=== PATIENT | male | born 1945 | race Caucasian/White ===

== ENCOUNTER 2017-01-10 03:22 | Inpatient (IN) | payer MEDICARE ==
--- NOTE | 2017-01-10 03:40 | Emergency Department Record ---
History of Present Illness - General Chief Complaint: Abdominal Pain Stated Complaint: ABDOMEN PAIN Time Seen by Provider: 01/10/17 03:36 Source: Patient Mode of Arrival: Ambulatory Limitations: No limitations - History of Present Illness Initial Comments: The patient is here due to a 12 hour hx of abdominal pain and fullness with nausea and 3 episodes of vomiting. He denies any diarrhea, fever, CP, SOB or back pain. The patient has a hx of a partial colon resection in 2002 due to colon CA and since has had 3 episodes of an SBO that he has been hospitalized for. He has never needed surgery for the SBO and has resolved them spontaneously and now feels like he has another. He denies any hx of any other abdominal surgeries and his last SBO was around 2006. MD Complaint: Abdominal pain Onset/Timin -: Hour(s) Location: Epigastric Radiation: None Migration to: No migration Severity: Moderate Quality: Fullness, Other Consistency: Intermittent Improves With: Movement Worsens With: Nothing Associated Symptoms: Nausea - Related Data Home Medications Medication Instructions Recorded Confirmed Last Taken Hydrocodone/Acetaminophen [[place] 1 each PO QHS 01/10/17 01/10/17 01/08/17 5-325 Tablet] Allergies Allergy/AdvReac Type Severity Reaction Status Date / Time No Known Drug Allergies Allergy Verified 01/10/17 03:26 Travel Screening - Travel/Exposure Within Last 30 Days Have you traveled within the last 30 days?: No - Travel/Exposure Within Last Year Have you traveled outside the [place] in the last year?: No - Additonal Travel Details Have you been exposed to anyone with a communicable illness?: No - Travel Symptoms Symptom Screening: None Review of Systems Constitutional: Denies: Chills, Fever Eyes: Denies: Eye discharge ENT: Denies: Congestion Respiratory: Denies: Cough Past Medical History - SOCIAL HISTORY Smoking Status: Never smoker Alcohol Use: Occassional Drug Use: None - RESPIRATORY Hx Respiratory Disorders: No - CARDIOVASCULAR Hx Cardio Disorders: No - NEURO Hx Neuro Disorders: No - GI Hx GI Disorders: Yes Hx Abdominal Pain: Yes Comment:: adhesions and scar tissue - Hx Genitourinary Disorders: No - ENDOCRINE Hx Endocrine Disorders: No - MUSCULOSKELETAL Hx Musculoskeletal Disorders: Yes Hx Arthritis: Yes - PSYCH Hx Psych Problems: No - HEMATOLOGY/ONCOLOGY Hx Hematology/Oncology Disorders: Yes Hx Cancer: Yes (colon) Family Medical History Any Significant Family History?: No Physical Exam - General General Appearance: Alert, Oriented x3, Cooperative, No acute distress - Head Head exam: Atraumatic - Eye Eye exam: Normal appearance, PERRL - ENT Throat exam: Normal inspection. negative: Tonsillar erythema, Tonsillar exudate - Neck Neck exam: Normal inspection, Full ROM. negative: Tenderness - Respiratory Respiratory exam: Normal lung sounds bilaterally. negative: Respiratory distress - Cardiovascular Cardiovascular Exam: Regular rate, Normal rhythm, Normal heart sounds - GI/Abdominal GI/Abdominal exam: Soft, Diminished bowel sounds, Tenderness (There is diffuse upper abdominal tenderness.). negative: Guarding, Pulsatile mass, Rebound, Rigid - Extremities Extremities exam: Normal inspection, Full ROM, Normal capillary refill. negative: Tenderness - Neurological Neurological exam: Normal gait. negative: Abnormal gait, Motor sensory deficit - Psychiatric Psychiatric exam: negative: Anxious Course Vital Signs 01/10/17 01/10/17 03:25 03:31 Temperature 97.6 F Pulse Rate [ 78 Pulse Ox Probe] Respiratory 24 Rate Blood Pressure 136/86 [Left Arm] Pulse Ox 96 - Reevaluation(s) Reevaluation #1: The patient is doing better. He is resting comfortably with no pain or nausea. 01/10/17 04:41 Reevaluation #2: The patient is doing very well at this time. He denies any pain or discomfort. I did explain to him that it appears he has a mild SBO. Due to that fact we will admit him to the hospital and consult General Surgery tomorrow for further evaluation. 01/10/17 04:53 Medical Decision Making - Data Complexity MDM Data: Labs Ordered and/or Reviewed, X-Ray Ordered and/or Reviewed - Lab Data Result diagrams: 01/10/17 04:05 01/10/17 04:05 - Radiology Data Radiology results: Report reviewed (Abd CT: Mild to mod SBO.) Disposition Disposition: Admit Clinical Impression: Small bowel obstruction due to adhesions Disposition: Still a Patient at [facility] Decision to Admit: Admit from ER Decision to Admit Date: 01/10/17 Decision to Admit Time: 04:54 Accepting Physician: Radha Time Discussed w/Accepting Physician: 04:54 Condition: (2) Stable Forms: Patient Portal Access Time of Disposition: 04:55
[2017-01-10] MEDS ORDERED: 0.9 % SODIUM CHLORIDE 1,000 ML BAG IV ONE (03:46)
[2017-01-10] MEDS ORDERED: ONDANSETRON HCL IV 4 MG/2 ML VIAL IV ONE (03:46)
[2017-01-10] MEDS ORDERED: HYDROMORPHONE HCL 1 MG/ML CPJ IVP ONE (03:46)
[2017-01-10 04:19] LABS: HEMATOCRIT 47.7 % (42.0-52.0); HEMOGLOBIN 16.2 gm/dl (14.0-18.0); MEAN CELL VOLUME 86.9 fl (81-97); MEAN CORPUSCULAR HEMOGLOBIN 29.5 pg (27-33); MEAN PLATELET VOLUME 9.1 fl (7.4-10.4); PLATELET COUNT 349 K/uL (130-400); RED BLOOD COUNT 5.49 M/uL (4.40-5.70); RED CELL DISTRIBUTION WIDTH 13.9 % (11.5-14.5); WHITE BLOOD COUNT W/O DIFF 14.4 K/uL (4.2-12.2)
[2017-01-10 04:31] LABS: ALBUMIN 4.1 gm/dL (3.5-5.0); ALKALINE PHOSPHATASE 99 U/L (38-126); ALT/SGPT 32 U/L (21-72); ANION GAP 11.5 (7-16); AST/SGOT 25 U/L (17-59); BILIRUBIN,TOTAL 0.61 mg/dL (0.2-1.3); BLOOD UREA NITROGEN 16 mg/dL (9-20); CARBON DIOXIDE 20.5 mmol/L (22-30); CREATININE 0.7 mg/dL (0.66-1.25); EST GLOMERULAR FILTRATION RATE > 60 ml/min; GLUCOSE,RANDOM 169 mg/dL (70-110); LIPASE 24 U/L (23-300); TOTAL PROTEIN 7.5 gm/dL (6.3-8.2)
[2017-01-10] MEDS ORDERED: POTASSIUM CHLORIDE/D5-0.9%NACL 20 MEQ/1,000 ML BAG IV ONE (05:24)
[2017-01-10] MEDS ORDERED: HYDROMORPHONE HCL 1 MG/ML CPJ IVP PRN (05:24)
[2017-01-10] MEDS ORDERED: ONDANSETRON HCL IV 4 MG/2 ML VIAL IVP PRN (05:24)
[2017-01-10 06:20] LABS: HEMATOCRIT 44.9 % (42.0-52.0); MEAN CELL VOLUME 87.7 fl (81-97); MEAN CORPUSCULAR HEMOGLOBIN 29.3 pg (27-33); MEAN CORPUSCULAR HGB CONC 33.4 g/dl (32-36); MEAN PLATELET VOLUME 9.3 fl (7.4-10.4); PLATELET COUNT 327 K/uL (130-400); RED BLOOD COUNT 5.12 M/uL (4.40-5.70); RED CELL DISTRIBUTION WIDTH 14.1 % (11.5-14.5); WHITE BLOOD COUNT W/O DIFF 13.7 K/uL (4.2-12.2)
[2017-01-10 06:31] LABS: ANION GAP 12.7 (7-16); BLOOD UREA NITROGEN 18 mg/dL (9-20); CARBON DIOXIDE 22.3 mmol/L (22-30); CREATININE 0.7 mg/dL (0.66-1.25); EST GLOMERULAR FILTRATION RATE > 60 ml/min; GLUCOSE,RANDOM 184 mg/dL (70-110)
[2017-01-10 07:06] LABS: PLATELET ESTIMATE NORMAL (NORMAL)
[2017-01-10] MEDS ORDERED: PNEUM 13-VAL/PF 0.5 ML IM ONE (07:58)
[2017-01-10] MEDS: ENOXAPARIN 40 MG/0.4 ML SYR SQ SCH (09:29)
[2017-01-10] MEDS: PANTOPRAZOLE SODIUM IV 40 MG VIAL IV SCH (09:29)
[2017-01-10 12:57] LABS: URINE APPEARANCE CLEAR; URINE BILIRUBIN NEGATIVE (NEGATIVE); URINE BLOOD NEGATIVE (NEGATIVE); URINE COLOR YELLOW; URINE GLUCOSE (UA) NEGATIVE (NEGATIVE); URINE KETONE NEGATIVE (NEGATIVE); URINE LEUKOCYTE ESTERASE NEGATIVE (NEGATIVE); URINE NITRITE NEGATIVE (NEGATIVE); URINE PROTEIN NEGATIVE (NEGATIVE); URINE UROBILINOGEN 0.2 E.U./dL (0.20 - 1.00)
[2017-01-10] MEDS: 0.9 % SODIUM CHLORIDE 1000ML 1,000 ML IV PRN ×2 (15:26→21:42)
--- NOTE | 2017-01-10 19:28 | History & Physical ---
History of Present Illness - Date of Service Date of Service for History & Physical: 01/10/17 - History of Present Illness Admitting Diagnosis: 1. Small Bowel Obstruction due to Adhesions. History of Present Illness: 71 y/o male with CC of 12 hour history of abdominal pain and fullness, nausea and vomiting x 3 admitted for SBO. Past medical history includes SBO x3 2nd adhesions (last one 2006), chronic back pain, colon ca s/p partial colon resection 2002. Past Surgical History partial colon resection 2002 hip replacement Prior to arrival reports 12 hour history of abdominal pain, fullness, nausea and vomiting. Denies diarrhea, fever, chest pain, shortness of breath. Reports had partial bowel obstructions 3 times previously that resolved without surgery. Has seen Dr Rizo in the past for SBO. Does not take daily laxative or stool softener. Last BM 2 days ago While in the ED WBC 14.4, was afebrile, VSS. CT abdomen shows mild SBO. Admitted for SBO, surgical consult, IVF, pain management. Laboratory Results WBC 13.7 K/uL (4.2-12.2) H 01/10/17 05:50 RBC 5.12 M/uL (4.40-5.70) 01/10/17 05:50 Hgb 15.0 gm/dl (14.0-18.0) 01/10/17 05:50 Hct 44.9 % (42.0-52.0) 01/10/17 05:50 MCV 87.7 fl (81-97) 01/10/17 05:50 MCH 29.3 pg (27-33) 01/10/17 05:50 MCHC 33.4 g/dl (32-36) 01/10/17 05:50 RDW 14.1 % (11.5-14.5) 01/10/17 05:50 Plt Count 327 K/uL (130-400) 01/10/17 05:50 MPV 9.3 fl (7.4-10.4) 01/10/17 05:50 Neutrophils % 86.0 % (47-80) H 01/10/17 05:50 Band Neutrophils % 4.0 % (0-5) 01/10/17 04:05 Eosinophils % Not Reportable 01/10/17 05:50 Basophils % Not Reportable 01/10/17 05:50 Lymphocytes 11.0 % (16-45) L 01/10/17 05:50 Monocytes 3.0 % (0-9) 01/10/17 05:50 Basophils 0.0 % (0-6) 01/10/17 04:05 Platelet Estimate Normal (NORMAL) 01/10/17 05:50 RBC Morphology Normal 01/10/17 05:50 Eosinophil Count 0.0 % (0-6) 01/10/17 04:05 Sodium 144 mmol/L (136-145) 01/10/17 05:50 Potassium 4.1 mmol/L (3.5-5.1) 01/10/17 05:50 Chloride 109 mmol/L (98-107) H 01/10/17 05:50 Carbon Dioxide 22.3 mmol/L (22-30) 01/10/17 05:50 Anion Gap 12.7 (7-16) 01/10/17 05:50 BUN 18 mg/dL (9-20) 01/10/17 05:50 Creatinine 0.7 mg/dL (0.66-1.25) 01/10/17 05:50 Estimated GFR > 60 ml/min 01/10/17 05:50 Random Glucose 184 mg/dL (70-110) H 01/10/17 05:50 Calcium 9.2 mg/dL (8.5-10.1) 01/10/17 05:50 Total Bilirubin 0.61 mg/dL (0.2-1.3) 01/10/17 04:05 Direct Bilirubin 0.0 mg/dL (0-0.3) 01/10/17 04:05 AST 25 U/L (17-59) 01/10/17 04:05 ALT 32 U/L (21-72) 01/10/17 04:05 Alkaline Phosphatase 99 U/L (38-126) 01/10/17 04:05 Total Protein 7.5 gm/dL (6.3-8.2) 01/10/17 04:05 Albumin 4.1 gm/dL (3.5-5.0) 01/10/17 04:05 Lipase 24 U/L (23-300) 01/10/17 04:05 Urine Color Yellow 01/10/17 Unknown Urine Appearance Clear 01/10/17 Unknown Urine pH 6.0 (5.0-8.0) 01/10/17 Unknown Ur Specific [place] 1.025 (1.002-1.030) 01/10/17 Unknown Urine Protein Negative (NEGATIVE) 01/10/17 Unknown Urine Glucose (UA) Negative (NEGATIVE) 01/10/17 Unknown Urine Ketones Negative (NEGATIVE) 01/10/17 Unknown Urine Blood Negative (NEGATIVE) 01/10/17 Unknown Urine Nitrite Negative (NEGATIVE) 01/10/17 Unknown Urine Bilirubin Negative (NEGATIVE) 01/10/17 Unknown Urine Urobilinogen 0.2 E.U./dL (0.20 - 1.00) 01/10/17 Unknown Ur Leukocyte Esterase Negative (NEGATIVE) 01/10/17 Unknown Vital Signs - Last 24 Hrs Temp Pulse Resp BP Pulse Ox 01/10/17 19:00 97.6 F 71 14 128/73 95 01/10/17 11:24 70 12 118/64 98 01/10/17 09:00 12 01/10/17 07:29 98.2 F 80 16 118/67 96 01/10/17 05:24 97.7 F 69 20 144/88 94 L 01/10/17 05:06 97.7 F 69 16 134/93 95 01/10/17 03:31 78 24 136/86 96 01/10/17 03:25 97.6 F 01/10/17- resting in bed comfortably, denies pain or nausea. Has not passed gas or stool since admit. PCP: Dr Marie Magazine Grinder Loader: Dr Ray General Surgeon- Dr Rizo Travel Screening - Travel/Exposure Within Last 30 Days Have you traveled within the last 30 days?: No - Travel/Exposure Within Last Year Have you traveled outside the [place] in the last year?: No - Additonal Travel Details Have you been exposed to anyone with a communicable illness?: No - Travel Symptoms Symptom Screening: Vomiting, Stomach Pain Review of Systems Constitutional: Denies: Chills, Fever Eyes: Denies: Eye discharge ENT: Denies: Congestion Respiratory: Denies: Cough Past Medical History - SOCIAL HISTORY Smoking Status: Never smoker - RESPIRATORY Hx Respiratory Disorders: No - CARDIOVASCULAR Hx Cardio Disorders: No - NEURO Hx Neuro Disorders: No - GI Hx GI Disorders: Yes Hx Abdominal Pain: Yes Hx Obstructive Bowel: Yes (SBO X3; LAST 2006) Comment:: adhesions and scar tissue - Hx Genitourinary Disorders: No - ENDOCRINE Hx Endocrine Disorders: No - MUSCULOSKELETAL Hx Musculoskeletal Disorders: Yes Hx Arthritis: Yes Comment:: CHRONIC BACK PAIN - PSYCH Hx Psych Problems: No - HEMATOLOGY/ONCOLOGY Hx Hematology/Oncology Disorders: Yes Hx Cancer: Yes (colon) Family Medical History Any Significant Family History?: No H&P Meds/Allergies - Allergies Allergies: Allergies Allergy/AdvReac Type Severity Reaction Status Date / Time No Known Drug Allergies Allergy Verified 01/10/17 03:26 - Home Medications Home Medications Medication Instructions Recorded Confirmed Last Taken Hydrocodone/Acetaminophen [[place] 1 each PO QHS 01/10/17 01/10/17 01/08/17 5-325 Tablet] - Active Medications Active Medications: Current Medications Acetaminophen (Tylenol 500mg Tab) 1,000 mg PO Q6H PRN PRN Reason: Pain - General Enoxaparin Sodium (Lovenox) 40 mg SQ DAILY [facility] Last Admin: 01/10/17 09:29 Dose: 40 mg Hydromorphone HCl (Dilaudid) 0.5 mg IVP Q4H PRN PRN Reason: Analgesia Sodium Chloride () 1,000 mls @ 125 mls/hr IV .Q8H PRN PRN Reason: LARGE VOLUME IV Last Admin: 01/10/17 15:26 Dose: 125 mls/hr Ondansetron HCl (Zofran) 4 mg IVP Q4H PRN PRN Reason: NAUSEA Pantoprazole Sodium (Protonix Iv) 40 mg IV DAILY [facility] Last Admin: 01/10/17 09:29 Dose: 40 mg Physical Exam - Vital Signs Vital Signs: Vital Signs - Last 24 Hrs Temp Pulse Resp BP Pulse Ox 01/10/17 19:00 97.6 F 71 14 128/73 95 01/10/17 11:24 70 12 118/64 98 01/10/17 09:00 12 01/10/17 07:29 98.2 F 80 16 118/67 96 01/10/17 05:24 97.7 F 69 20 144/88 94 L - General General Appearance: Alert, Oriented x3, Cooperative, No acute distress Limitations: No limitations - Head Head exam: Atraumatic - Eye Eye exam: Normal appearance, PERRL - ENT Throat exam: Normal inspection. negative: Tonsillar erythema, Tonsillar exudate - Neck Neck exam: Normal inspection, Full ROM. negative: Tenderness - Respiratory Respiratory exam: Normal lung sounds bilaterally. negative: Respiratory distress - Cardiovascular Cardiovascular Exam: Regular rate, Normal rhythm, Normal heart sounds Peripheral Pulses: 2+: Dorsalis Pedis (R), Dorsalis Pedis (L) - GI/Abdominal GI/Abdominal exam: Soft, Normal bowel sounds, Tenderness (There is diffuse upper abdominal tenderness.). negative: Guarding, Pulsatile mass, Rebound, Rigid - Rectal Rectal exam: Deferred - Extremities Extremities exam: Normal inspection, Full ROM, Normal capillary refill. negative: Tenderness - Neurological Neurological exam: Normal gait. negative: Abnormal gait, Motor sensory deficit - Psychiatric Psychiatric exam: negative: Anxious Results - Labs Result Diagrams: 01/10/17 05:50 01/10/17 05:50 Labs Last 24 Hours: Laboratory Results - last 24 hr 01/10/17 01/10/17 01/10/17 05:50 05:50 Unknown WBC 13.7 H RBC 5.12 Hgb 15.0 Hct 44.9 MCV 87.7 MCH 29.3 MCHC 33.4 RDW 14.1 Plt Count 327 MPV 9.3 Neutrophils % 86.0 H Eosinophils % Not Reportable Basophils % Not Reportable Lymphocytes 11.0 L Monocytes 3.0 Platelet Estimate Normal RBC Morphology Normal Sodium 144 Potassium 4.1 Chloride 109 H Carbon Dioxide 22.3 Anion Gap 12.7 BUN 18 Creatinine 0.7 Estimated GFR > 60 Random Glucose 184 H Calcium 9.2 Urine Color Yellow Urine Appearance Clear Urine pH 6.0 Ur Specific [place] 1.025 Urine Protein Negative Urine Glucose (UA) Negative Urine Ketones Negative Urine Blood Negative Urine Nitrite Negative Urine Bilirubin Negative Urine Urobilinogen 0.2 Ur Leukocyte Esterase Negative - Imaging and Cardiology CT scan - abdomen Status: Report reviewed (partial SBO) VTE H&P Assessment - Risk for VTE Risk for VTE: Yes Risk Level: Moderate Risk Assessment Date: 01/10/17 Risk Assessment Time: 09:00 VTE Orders Placed or Will Be Placed: Yes Plan - Inpatient Certification Inpatient Certification: Admit to inpatient care: Based on my medical assessment, after consideration of patient's risk factors (age, co-morbidities and patient presenting symptoms and acuity), I expect that this patient will remain in the hospital greater than or equal to two midnights and that the services needed warrant inpatient care because: Patient Risk Factors: [] Estimated length of stay: [] The patient may reasonably be expected to be discharged or transferred to a hospital within 96 hours after admission to [facility]. Services needed: [] Post hospital care (if known): [] I certify that my determination is in accordance with my understanding of Medicare requirements for reasonable and necessary inpatient services. - Detailed Diagnosis and Plan (1) Small bowel obstruction due to adhesions Current Visit: Yes Status: Acute Base Code: K56.5 - INTESTINAL ADHESIONS W OBST (POSTPROCEDURAL) (POSTINFECTION) Comment: 01/10/17- 71 y/o male with previous hx SBO admitted for SBO. WBC in ED 14.4 and down to 13 this am, afebrile. Nausea and pain resolved since admit. Has not passed gas or stool since admit. - Potassium lower end of normal in ED, repleated in ED - IV hydration - pain and nausea control - NPO - consult Dr Rizo (2) DVT prophylaxis Current Visit: Yes Status: Acute Base Code: [id number] - Comment: 01/10/17- lovenox 40mg QD (3) Full code status Current Visit: Yes Status: Acute Base Code: Z78.9 - OTHER SPECIFIED HEALTH STATUS Comment: 01/10/17- will remain full code during this hospitalization
[2017-01-10] MEDS: ACETAMINOPHEN 500 MG TABLET PO PRN (22:29)
[2017-01-11] MEDS: ACETAMINOPHEN 500 MG TABLET PO PRN (04:37)
[2017-01-11] MEDS: 0.9 % SODIUM CHLORIDE 1000ML 1,000 ML IV PRN ×2 (05:55→14:37)
[2017-01-11 06:27] LABS: BASO % 0.4 % (0-6); EOS % 2.6 % (0-6); GRAN % 49.1 % (47-80); HEMATOCRIT 38.5 % (42.0-52.0); HEMOGLOBIN 12.7 gm/dl (14.0-18.0); MEAN CELL VOLUME 88.9 fl (81-97); MEAN CORPUSCULAR HEMOGLOBIN 29.3 pg (27-33); MONO % 6.9 % (0-9); PLATELET COUNT 284 K/uL (130-400); RED BLOOD COUNT 4.33 M/uL (4.40-5.70); RED CELL DISTRIBUTION WIDTH 13.6 % (11.5-14.5); WHITE BLOOD COUNT W/O DIFF 7.8 K/uL (4.2-12.2)
[2017-01-11 06:37] LABS: ALB/GLOB RATIO 1.1 (1.1-1.8); ALBUMIN 3.2 gm/dL (3.5-5.0); ALKALINE PHOSPHATASE 64 U/L (38-126); ALT/SGPT 30 U/L (21-72); ANION GAP 4.8 (7-16); AST/SGOT 20 U/L (17-59); BILIRUBIN,TOTAL 0.71 mg/dL (0.2-1.3); BLOOD UREA NITROGEN 12 mg/dL (9-20); CARBON DIOXIDE 23.2 mmol/L (22-30); CREATININE 0.7 mg/dL (0.66-1.25); EST GLOMERULAR FILTRATION RATE > 60 ml/min; GLUCOSE,RANDOM 110 mg/dL (70-110); TOTAL PROTEIN 6.2 gm/dL (6.3-8.2)
--- NOTE | 2017-01-11 10:09 | Physician Progress Note ---
Subjective - Date Date of Physician Progress Note: 01/11/17 - Subjective Subjective Comment: Reports is doing much better this am. Has not had any nausea, vomiting, or pain. Had 2 large BM last night and has been passing gas. Feels much better after moving bowels. Now complaining of headache and feeling hungry Objective - Vital Signs Vital Signs: Vital Signs - Last 24 Hrs Temp Pulse Resp BP Pulse Ox 01/11/17 08:00 97.7 F 58 L 18 130/68 96 01/11/17 04:00 96.8 F L 64 16 118/80 95 01/11/17 00:30 97.8 F 68 16 128/83 94 L 01/10/17 19:00 97.6 F 71 14 128/73 95 01/10/17 11:24 70 12 118/64 98 - General General Appearance: Alert, Oriented x3, Cooperative, No acute distress Limitations: No limitations - Head Head exam: Atraumatic - Eye Eye exam: Normal appearance, PERRL - ENT Throat exam: Normal inspection. negative: Tonsillar erythema, Tonsillar exudate - Neck Neck exam: Normal inspection, Full ROM. negative: Tenderness - Respiratory Respiratory exam: Normal lung sounds bilaterally. negative: Respiratory distress - Cardiovascular Cardiovascular Exam: Regular rate, Normal rhythm, Normal heart sounds Peripheral Pulses: 2+: Dorsalis Pedis (R), Dorsalis Pedis (L) - GI/Abdominal GI/Abdominal exam: Soft, Normal bowel sounds. negative: Distended, Guarding, Pulsatile mass, Rebound, Rigid, Tenderness (There is diffuse upper abdominal tenderness.) - Rectal Rectal exam: Deferred - Extremities Extremities exam: Normal inspection, Full ROM, Normal capillary refill. negative: Tenderness - Neurological Neurological exam: Normal gait. negative: Abnormal gait, Motor sensory deficit - Psychiatric Psychiatric exam: negative: Anxious Assessment and Plan - Inpatient Certification Inpatient Certification: Admit to inpatient care: Based on my medical assessment, after consideration of patient's risk factors (age, co-morbidities and patient presenting symptoms and acuity), I expect that this patient will remain in the hospital greater than or equal to two midnights and that the services needed warrant inpatient care because: Patient Risk Factors: [SBO, advanced age] Estimated length of stay: [48-72 hours] The patient may reasonably be expected to be discharged or transferred to a hospital within 96 hours after admission to [facility]. Services needed: [IV hydration, pain/nausea control, surgical consult] Post hospital care (if known): [] I certify that my determination is in accordance with my understanding of Medicare requirements for reasonable and necessary inpatient services. 01/11/17 10:08 - Assessment and Plan (1) Small bowel obstruction due to adhesions Current Visit: Yes Status: Acute Base Code: K56.5 - INTESTINAL ADHESIONS W OBST (POSTPROCEDURAL) (POSTINFECTION) Comment: 01/11/17- 71 y/o male with previous hx SBO admitted for SBO. WBC in ED 14.4 and down to 13 this am, afebrile. Nausea and pain resolved since admit. 2 large BM last night with passing of a large amount of gas. Feels much better this am. No n/v. - will offer clear liquid tray and observe for any new onset n/v, abdominal pain. Advance as tolerates - IV hydration - consult Dr Rizo (2) DVT prophylaxis Current Visit: Yes Status: Acute Base Code: [id number] - Comment: 01/11/17- lovenox 40mg QD (3) Full code status Current Visit: Yes Status: Acute Base Code: Z78.9 - OTHER SPECIFIED HEALTH STATUS Comment: 01/11/17- will remain full code during this hospitalization Results - Labs Result Diagrams: 01/11/17 06:00 01/11/17 06:00 Labs Last 24 Hours: Laboratory Results - last 24 hr 01/10/17 01/11/17 01/11/17 Unknown 06:00 06:00 WBC 7.8 RBC 4.33 L Hgb 12.7 L Hct 38.5 L MCV 88.9 MCH 29.3 MCHC 33.0 RDW 13.6 Plt Count 284 MPV 9.0 Gran % 49.1 Lymphocytes % 41.0 Monocytes % 6.9 Eosinophils % 2.6 Basophils % 0.4 Sodium 141 Potassium 3.6 Chloride 113 H Carbon Dioxide 23.2 Anion Gap 4.8 L BUN 12 Creatinine 0.7 Estimated GFR > 60 Random Glucose 110 Calcium 8.2 L Total Bilirubin 0.71 AST 20 ALT 30 Alkaline Phosphatase 64 Total Protein 6.2 L Albumin 3.2 L Globulin 3.0 Albumin/Globulin Ratio 1.1 Urine Color Yellow Urine Appearance Clear Urine pH 6.0 Ur Specific [place] 1.025 Urine Protein Negative Urine Glucose (UA) Negative Urine Ketones Negative Urine Blood Negative Urine Nitrite Negative Urine Bilirubin Negative Urine Urobilinogen 0.2 Ur Leukocyte Esterase Negative DVT/PE Assessment - Risk for VTE Risk for VTE: No Risk Level: Moderate Risk Assessment Date: 01/10/17 Risk Assessment Time: 09:00 VTE Orders Placed or Will Be Placed: Yes - Active Medicaitons Current Medications: Current Medications Acetaminophen (Tylenol 500mg Tab) 1,000 mg PO Q6H PRN PRN Reason: Pain - General Last Admin: 01/11/17 04:37 Dose: 1,000 mg Enoxaparin Sodium (Lovenox) 40 mg SQ DAILY [facility] Last Admin: 01/10/17 09:29 Dose: 40 mg Hydromorphone HCl (Dilaudid) 0.5 mg IVP Q4H PRN PRN Reason: Analgesia Sodium Chloride () 1,000 mls @ 125 mls/hr IV .Q8H PRN PRN Reason: LARGE VOLUME IV Last Admin: 01/11/17 05:55 Dose: 125 mls/hr Ondansetron HCl (Zofran) 4 mg IVP Q4H PRN PRN Reason: NAUSEA Pantoprazole Sodium (Protonix Iv) 40 mg IV DAILY [facility] Last Admin: 01/10/17 09:29 Dose: 40 mg AMI Plan - Labs Result Diagrams: 01/11/17 06:00 01/11/17 06:00
[2017-01-11] MEDS: PANTOPRAZOLE SODIUM IV 40 MG VIAL IV SCH (11:36)
[2017-01-11] MEDS: ENOXAPARIN 40 MG/0.4 ML SYR SQ SCH (11:36)
--- NOTE | 2017-01-11 16:59 | Discharge Summary ---
Providers Date of admission: 01/10/17 05:06 Attending physician: JAQUELINE SALAS Primary care physician: DHIRAJ JACKSON D.O. Consults: Consult Orders 01/10/17 08:14 Consult NOW Consulting Provider: Brendan Rizo Physician Instructions: Reason For Exam: SBO Physical Exam - Vital Signs Vital Signs: Vital Signs - Last 24 Hrs Temp Pulse Resp BP Pulse Ox 01/11/17 16:00 97.6 F 68 16 130/71 96 01/11/17 11:41 97.7 F 66 18 133/70 98 01/11/17 09:00 18 01/11/17 08:00 97.7 F 58 L 18 130/68 96 01/11/17 04:00 96.8 F L 64 16 118/80 95 01/11/17 00:30 97.8 F 68 16 128/83 94 L 01/10/17 19:00 97.6 F 71 14 128/73 95 - General General Appearance: Alert, Oriented x3, Cooperative, No acute distress Limitations: No limitations - Head Head exam: Atraumatic - Eye Eye exam: Normal appearance, PERRL - ENT Throat exam: Normal inspection. negative: Tonsillar erythema, Tonsillar exudate - Neck Neck exam: Normal inspection, Full ROM. negative: Tenderness - Respiratory Respiratory exam: Normal lung sounds bilaterally. negative: Respiratory distress - Cardiovascular Cardiovascular Exam: Regular rate, Normal rhythm, Normal heart sounds Peripheral Pulses: 2+: Dorsalis Pedis (R), Dorsalis Pedis (L) - GI/Abdominal GI/Abdominal exam: Soft, Normal bowel sounds. negative: Distended, Guarding, Pulsatile mass, Rebound, Rigid, Tenderness (There is diffuse upper abdominal tenderness.) - Rectal Rectal exam: Deferred - Extremities Extremities exam: Normal inspection, Full ROM, Normal capillary refill. negative: Tenderness - Neurological Neurological exam: Normal gait. negative: Abnormal gait, Motor sensory deficit - Psychiatric Psychiatric exam: negative: Anxious Hospitalization - Hospitalization Admission Diagnosis: 1. Small Bowel Obstruction due to Adhesions. - Problem List/Discharge Diagnosis (1) Small bowel obstruction due to adhesions Current Visit: Yes Status: Acute Base Code: K56.5 - INTESTINAL ADHESIONS W OBST (POSTPROCEDURAL) (POSTINFECTION) Comment: 01/11/17- 71 y/o male with previous hx SBO admitted for SBO. WBC in ED 14.4 and down to 13 this am, afebrile. Nausea and pain resolved since admit. 2 large BM last night with passing of a large amount of gas. Feels much better this am. No n/v. - will offer clear liquid tray and observe for any new onset n/v, abdominal pain. Advance as tolerates - IV hydration - consult Dr Rizo (2) DVT prophylaxis Current Visit: Yes Status: Acute Base Code: [id number] - Comment: 01/11/17- lovenox 40mg QD (3) Full code status Current Visit: Yes Status: Acute Base Code: Z78.9 - OTHER SPECIFIED HEALTH STATUS Comment: 01/11/17- will remain full code during this hospitalization - Hospitalization Course Abnormal Labs: Abnormal Lab Results 01/10/17 01/10/17 01/11/17 Range/Units 05:50 05:50 06:00 WBC 13.7 H (4.2-12.2) K/uL RBC 4.33 L (4.40-5.70) M/uL Hgb 12.7 L (14.0-18.0) gm/dl Hct 38.5 L (42.0-52.0) % Neutrophils % 86.0 H (47-80) % Lymphocytes 11.0 L (16-45) % Chloride 109 H (98-107) mmol/L Anion Gap (7-16) Random Glucose 184 H (70-110) mg/dL Calcium (8.5-10.1) mg/dL Total Protein (6.3-8.2) gm/dL Albumin (3.5-5.0) gm/dL 01/11/17 Range/Units 06:00 WBC (4.2-12.2) K/uL RBC (4.40-5.70) M/uL Hgb (14.0-18.0) gm/dl Hct (42.0-52.0) % Neutrophils % (47-80) % Lymphocytes (16-45) % Chloride 113 H (98-107) mmol/L Anion Gap 4.8 L (7-16) Random Glucose (70-110) mg/dL Calcium 8.2 L (8.5-10.1) mg/dL Total Protein 6.2 L (6.3-8.2) gm/dL Albumin 3.2 L (3.5-5.0) gm/dL Condition at Discharge: (2) Stable Discharge Medications - Discharge Medications Prescriptions: Sennosides [Senna] 8.6 mg PO DAILY #30 tablet Home Medications: Ambulatory Orders Hydrocodone/Acetaminophen [[place] 5-325 Tablet] 1 each PO QHS 01/10/17 [Last Taken 01/08/17] Sennosides [Senna] 8.6 mg PO DAILY #30 tablet 01/11/17 [Last Taken Unknown] Discharge Plan - Discharge Instructions
--- NOTE | 2017-01-12 10:01 | Medical Records Consult ---
DATE OF CONSULTATION: 01/11/2017 REASON FOR CONSULTATION: Small bowel obstruction. INDICATIONS: The patient is a 71-year-old male who was admitted yesterday to the hospital with about a 10- to 12-hour history of abdominal pain. He described this as diffuse in his abdomen without radiation. He had associated nausea and vomiting. He has had 3 similar episodes, the latest of which was in 2006, all handled conservatively. Imaging studies did reveal a mildly dilated colon with some gas distally consistent with a partial small bowel obstruction. He did undergo an open sigmoid resection back in 2002 for colon cancer. Two of the episodes were handled conservatively in [place] and one was up in [place]. Since being admitted to the hospital, he has had 2-3 large bowel movements, has no nausea, no vomiting, and is on a clear liquid diet. PAST MEDICAL HISTORY: Significant for colon cancer. PAST SURGICAL HISTORY: Open sigmoid resection. He currently takes [place] at home, and he has no known medical allergies. SOCIAL HISTORY: He denies any tobacco or alcohol usage. PHYSICAL EXAMINATION: VITAL SIGNS: Stable. He is afebrile. HEART: Regular rate and rhythm. LUNGS: Clear. ABDOMEN: Soft. Mildly obese. Mildly distended. Bowel sounds are noted. He does have a well-healed infraumbilical laparotomy scar noted as well. DIAGNOSTIC DATA: I did review his laboratory values and CT scan. Laboratory values from 01/11/2017 reveal a white count of 7.8, hemoglobin 12.7. His chemistries were all essentially normal. There were no follow up films ordered. IMPRESSION: Partial small bowel obstruction. This appears to be clinically resolving. He is tolerating a diet, moving his bowels without difficulty, and is clinically stable. I would advance his diet as tolerated, and he can follow up with his primary care as needed. At this point it does not seem like he needs any surgical intervention. Thank you for this consultation. CC: Dr. Radha JOYNER
== END 2017-01-11 19:07 | disposition home or self-care (01) | DRG 390 ==
LOC: ER 03:22 → MEDSURG 05:06
PROVIDERS: ADMIT Family Medicine; ATTEND Family Medicine
DX: K56.5 Intestinal adhesions [bands] with obstruction (postinfection) (principal); Z78.9 Other specified health status
CPT/HCPCS: 99285 ×2; 96374; 96375; 96361; 83690; 80076; 80048; 85027; 74176; J2405; J1170; 80053; 81003; 85025; 99223; 99239; C9113; J1650; J3480; J7030

== ENCOUNTER 2017-07-05 11:57 | Day surgery (SDC) | payer MEDICARE ==
[2017-07-05] MEDS ORDERED: PROPOFOL 10 MG/ML VIAL IV ONE (11:58)
[2017-07-05] MEDS ORDERED: LIDOCAINE 2% MDV (20MG/ML) 20ML VIAL IV ONE (11:58)
[2017-07-05] MEDS ORDERED: MIDAZOLAM HCL 2MG/2ML VIAL IV ONE (11:58)
--- NOTE | 2017-07-06 15:31 | Operative Note ---
Dictated by Dr. Chace Rose DATE OF SURGERY: 07/05/2017 OPERATION: Screening COLONOSCOPY. PERFORMING PHYSICIAN: Keven Ray DO ASSISTING PHYSICIAN: Dr. Chace Rose PREOPERATIVE DIAGNOSIS: Screening colonoscopy with history of colon cancer. POSTOPERATIVE DIAGNOSIS: Diverticulosis. INDICATIONS: The patient was diagnosed with colon cancer, status post resection in 2002. He has had subsequent colonoscopy for screening purposes at least every 5 years since. The patient presents today with no GI symptoms at this time. PROCEDURE: Risks and benefits of the colonoscopy as well as anesthesia were discussed in details with the patient, and patient was given alternates to procedure and given the opportunity to ask questions regarding the procedure as well. Consents for the colonoscopy and anesthesia were signed, and the patient was then transported to the endoscopy suite. A timeout was conducted confirming the patient's name, date of , and procedure to be done. Vitals were taken and monitored throughout the procedure with blood pressure cuff, pulse oximetry, and ECG tracing by Anesthesia. The patient was then placed in the left lateral position and placed under moderate sedation with mainly propofol under the guidance of the nurse foundation relations manager team at [facility]. Please see medical records for specific details of medications given. Once it was confirmed that the patient was under moderate sedation, a rectal examination was performed revealing no abnormalities. An Olympus 180 colonoscope was then lubricated and entered into the rectum and advanced into the rectal vault under direct visualization. Any fluid or fecal material was then suctioned and water immersion was used throughout the sigmoid colon in advancement of the colonoscope. The colonoscope was then advanced without difficulty to the cecum, and the terminal ileum was intubated as well with photo documentation taken of the terminal ileum, the ileocecal valve, and the appendiceal orifice. A two-look examination was taken of the cecum with no abnormalities appreciated and again the colon was cleaned with irrigation as well as with removal of the fecal and fluid via suction. The scope was then withdrawn with over a 6-minute withdrawal time with direct visualization of the cecum, ascending colon, transverse colon, descending colon, and sigmoid colon with only appreciation of diverticulosis most notably in the sigmoid colon that was very mild. Once in the rectum, a retroflexion was performed with clear view of the anorectal area with no abnormalities appreciated. The scope was then withdrawn and the patient was recovered and tolerated the procedure very well. There were no complications. IMPRESSION: Diverticulosis with no polyps appreciated. The patient does have a history of colon cancer. RECOMMENDATIONS: Due to the history of the patient's past medical history of colon cancer, I would recommend repeat colonoscopy in 5 years. Attending physician was present for duration of the procedure with recommendations made. As always, thank you for allowing me to participate in the care of your patient. CC: Dr. Jolene JOYNER
== END 2017-07-05 17:17 | disposition home or self-care (01) ==
LOC: HOP 11:57
PROVIDERS: ATTEND Internal Medicine Gastroenterology
DX: Z12.11 Encounter for screening for malignant neoplasm of colon (principal); Z85.038 Personal history of other malignant neoplasm of large intestine; K57.30 Diverticulosis of large intestine without perforation or abscess without bleeding
CPT/HCPCS: 00810; G0105

== ENCOUNTER 2019-04-09 14:17 | Emergency (ER) | payer MEDICARE ==
[2019-04-09] MEDS ORDERED: CEPHALEXIN 500 MG CAPSULE PO STA (16:11)
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
== END 2019-04-09 16:34 | disposition home or self-care (01) ==
LOC: ER 14:17
DX: S70.352A Superficial foreign body, left thigh, initial encounter (principal); W29.4XXA Contact with nail gun, initial encounter
CPT/HCPCS: 99284

== ENCOUNTER 2019-05-26 14:43 | Inpatient (IN) | payer MEDICARE ==
[2019-05-26] MEDS ORDERED: KETOROLAC 30 MG/ML VIAL IVP ONE (15:07)
[2019-05-26] MEDS ORDERED: 0.9 % SODIUM CHLORIDE 1,000 ML BAG IV ONE (15:07)
[2019-05-26] MEDS ORDERED: ONDANSETRON HCL IV 4 MG/2 ML VIAL IV ONE (15:07)
[2019-05-26 15:19] LABS: HEMATOCRIT 52.1 % (42.0-52.0); HEMOGLOBIN 17.1 gm/dl (14.0-18.0); MEAN CELL VOLUME 86.7 fl (81-97); MEAN CORPUSCULAR HGB CONC 32.8 g/dl (32-36); MEAN PLATELET VOLUME 8.7 fl (7.4-10.4); PLATELET COUNT 371 K/uL (130-400); RED BLOOD COUNT 6.01 M/uL (4.40-5.70); RED CELL DISTRIBUTION WIDTH 14.9 % (11.5-14.5); WHITE BLOOD COUNT W/O DIFF 16.9 K/uL (4.2-12.2)
[2019-05-26 15:22] LABS: MEAN CORPUSCULAR HEMOGLOBIN 28.4 pg (27-33)
[2019-05-26 15:29] LABS: BLOOD UREA NITROGEN 29 mg/dL (8-23); EST GLOMERULAR FILTRATION RATE > 60 mL/min; TOTAL PROTEIN 8.9 g/dL (6.6-8.7)
[2019-05-26 15:30] LABS: LIPASE 12 U/L (13-60)
[2019-05-26 15:31] LABS: GLUCOSE,RANDOM 190 mg/dL (74-109)
--- NOTE | 2019-05-26 15:31 | Emergency Department Record ---
History of Present Illness - General Chief complaint: Male Urogenital Problem Stated complaint: ADHESION FROM SCARE TISSUE Time Seen by Provider: 05/26/19 14:53 Source: Patient Mode of Arrival: Ambulatory Limitations: No limitations - History of Present Illness Initial comments: pt thinks he has a bowel obstruction from adhesions. he has had these many times from scar tissue from colon ca surgery. he has been vomiting. last bm was 3 days ago Onset/Timin -: Days(s) Location: Abdomen Severity scale (1-10): 8 Quality: Aching Consistency: Constant Reports: Nausea/vomiting - Related Data Sexually active: No Previous Rx's Medication Instructions Recorded Cephalexin [Keflex] 500 mg PO TID #20 cap 04/09/19 Allergies Allergy/AdvReac Type Severity Reaction Status Date / Time No Known Drug Allergies Allergy Verified 04/09/19 14:26 Travel Screening - Travel/Exposure Within Last 30 Days Have you traveled within the last 30 days?: No Review of Systems Reviewed: No additional complaints except as noted below Constitutional: Reports: As per HPI. Denies: Chills, Fever, Malaise, Night sweats, Weakness, Weight change Eyes: Reports: As per HPI. Denies: Eye discharge, Eye pain, Photophobia, Vision change ENT: Reports: As per HPI. Denies: Congestion, Dental pain, Ear pain, Epistaxis, Hearing loss, Throat pain Respiratory: Reports: As per HPI. Denies: Cough, Dyspnea, Hemoptysis, Stridor, Wheezes Cardiovascular: Reports: As per HPI. Denies: Arrhythmia, Chest pain, Dyspnea on exertion, Edema, Murmurs, Orthopnea, Palpitations, Paroxysmal nocturnal dy spnea, Rheumatic Fever, Syncope Endocrine: Reports: As per HPI. Denies: Fatigue, Heat or cold intolerance, Polydipsia, Polyuria Gastrointestinal: Reports: As per HPI. Denies: Abdominal pain, Constipation, Diarrhea, Hematemesis, Hematochezia, Melena, Nausea, Vomiting Genitourinary: Reports: As per HPI. Denies: Dysuria, Frequency, Hematuria, Incontinence, Retention, Testicular pain, Testicular mass, Urgency Musculoskeletal: Reports: As per HPI. Denies: Arthralgia, Back pain, Gout, Joint swelling, Myalgia, Neck pain Skin: Reports: As per HPI. Denies: Bruising, Change in color, Change in hair/nails, Lesions, Pruritus, Rash Neurological: Reports: As per HPI. Denies: Abnormal gait, Confusion, Headache, Numbness, Paresthesias, Seizure, Tingling, Tremors, Vertigo, Weakness Psychiatric: Reports: As per HPI. Denies: Anxiety, Auditory hallucinations, Depression, Homicidal thoughts, Suicidal thoughts, Visual hallucinations Hematological/Lymphatic: Reports: As per HPI. Denies: Anemia, Blood Clots, Easy bleeding, Easy bruising, Swollen glands Past Medical History - SOCIAL HISTORY Smoking Status: Former smoker - RESPIRATORY Hx Respiratory Disorders: No - CARDIOVASCULAR Hx Cardio Disorders: No - NEURO Hx Neuro Disorders: Yes Hx Headaches: Yes - GI Hx GI Disorders: Yes Hx Abdominal Pain: Yes Hx Obstructive Bowel: Yes (SBO X3; LAST 2006) Hx of Polyps: Yes Comment:: adhesions and scar tissue - Hx Genitourinary Disorders: No - ENDOCRINE Hx Endocrine Disorders: Yes Hx Diabetes: Yes (oral) - MUSCULOSKELETAL Hx Musculoskeletal Disorders: Yes Hx Arthritis: Yes Comment:: CHRONIC BACK PAIN - PSYCH Hx Psych Problems: No - HEMATOLOGY/ONCOLOGY Hx Hematology/Oncology Disorders: Yes Hx Cancer: Yes (colon) Family Medical History Any Significant Family History?: No Physical Exam - General General Appearance: Alert, Oriented x3, Cooperative, Mild distress - Head Head exam: Normal inspection - Eye Eye exam: Normal appearance, PERRL, EOMI Pupils: Normal accommodation - ENT ENT exam: Normal exam, Mucous membranes moist, Normal external ear exam, Normal orophraynx Ear exam: Normal external inspection. negative: External canal tenderness Nasal Exam: Normal inspection. negative: Discharge, Sinus tenderness Mouth exam: Normal external inspection, Tongue normal Teeth exam: Normal inspection. negative: Dental caries Throat exam: Normal inspection. negative: Tonsillar erythema, Tonsillar exudate - Neck Neck exam: Normal inspection, Full ROM. negative: Tenderness - Respiratory Respiratory exam: Normal lung sounds bilaterally. negative: Respiratory distress - Cardiovascular Cardiovascular Exam: Regular rate, Normal rhythm, Normal heart sounds - GI/Abdominal GI/Abdominal exam: Distended, Tenderness - Rectal Rectal exam: Deferred - exam: Deferred - Extremities Extremities exam: Normal inspection, Full ROM, Normal capillary refill. negative: Tenderness - Back Back exam: Reports: Normal inspection, Full ROM. Denies: Muscle spasm, Rash noted, Tenderness - Neurological Neurological exam: Alert, Normal gait, Oriented X3, Reflexes normal - Psychiatric Psychiatric exam: Normal affect, Normal mood - Skin Skin exam: Dry, Intact, Normal color, Warm Course Vital Signs 05/26/19 14:49 Temperature 97.4 F L Pulse Rate 94 H Respiratory 20 Rate Blood Pressure 141/88 Pulse Ox 99 - Reevaluation(s) Reevaluation #1: 05/26/19 18:04 d/w dr kamara and lynda Medical Decision Making - Lab Data Result diagrams: 05/26/19 15:00 05/26/19 15:00 Lab Results 05/26/19 Range/Units 15:00 WBC 16.9 H (4.2-12.2) K/uL RBC 6.01 H (4.40-5.70) M/uL Hgb 17.1 (14.0-18.0) gm/dl Hct 52.1 H (42.0-52.0) % MCV 86.7 (81-97) fl MCH 28.4 (27-33) pg MCHC 32.8 (32-36) g/dl RDW 14.9 H (11.5-14.5) % Plt Count 371 (130-400) K/uL MPV 8.7 (7.4-10.4) fl Eosinophils % Not Reportable Basophils % Not Reportable Absolute Neutrophils Not Reportable Disposition Disposition: Admit Clinical Impression: Small bowel obstruction due to adhesions Disposition: Still a Patient at [facility] Decision to Admit: Admit from ER Decision to Admit Date: 05/26/19 Decision to Admit Time: 18:03 Forms: Patient Portal Access Quality - Quality Measures Quality Measures: N/A - Blood Pressure Screening Does Patient Have Any of the Following: No Blood Pressure Classification: Pre-Hypertensive BP Reading Systolic Measurement: 141 Diastolic Measurement: 88 Screening for High Blood Pressure: < Pre-Hypertensive BP, F/U Documented > [G8950] Pre-Hypertensive Follow-up Interventions: Follow-up with rescreen every year.
[2019-05-26 15:34] LABS: ALBUMIN 4.9 g/dL (4.0-5.0); ALKALINE PHOSPHATASE 95 U/L (40-129); ALT/SGPT 34 U/L (<41); AST/SGOT 24 U/L (10.0-50.0)
[2019-05-26 15:37] LABS: BILIRUBIN,DIRECT < 0.2 mg/dL (0-0.3)
--- NOTE | 2019-05-26 17:27 | CT SCAN REPORT ---
EXAMINATION: CT Abdomen and Pelvis with IV Contrast EXAM DATE: 05/26/2019 4:59 PM TECHNIQUE: CT imaging of the abdomen and pelvis was performed with intravenous contrast. Coronal and sagittal images were reconstructed. IV Contrast: The amount and type of contrast are recorded in the medical record. INDICATION: ap COMPARISON: 2017 CT scan. ENCOUNTER: Not applicable CT ABDOMEN AND PELVIS FINDINGS: Lung Bases: Included extent of the lung bases are clear. Hepatobiliary: Mild hepatic steatosis. Normal gallbladder. Pancreas: The pancreas is normal. Spleen: The spleen is not enlarged. Adrenals: The adrenal glands are normal. Kidneys, Ureters, & Bladder: Both kidneys have a normal size and there is no hydronephrosis. Both ur eters have a normal caliber and the urinary bladder is unremarkable. 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 Gastrointestinal: Multiple dilated fluid-filled loops of proximal small bowel with decompression of d istal small bowel loops consistent with small bowel obstruction. There is a transition point within t he midline lower abdomen with upstream fecal is aeration of small bowel loops. There is no evidence o f obstructing mass. There is no evidence of pneumatosis, mesenteric or portal venous gas, or free int raperitoneal air. The appendix is normal. There is mild colonic diverticulosis without evidence dive rticulitis. A surgical anastomosis is present within the sigmoid colon. Reproductive Organs: Unremarkable. Lymphatic System: There is no adenopathy within the abdomen or pelvis. Vasculature: Normal caliber abdominal aorta. Moderate atherosclerosis. Peritoneum: No free fluid, free air, or inflammation Abdominal Wall & Musculoskeletal: No suspicious bone lesions. Multilevel degenerative changes within the lumbar spine, worst at L2-L3. IMPRESSION: 1. High-grade distal small bowel obstruction with transition point within the midline lower abdomen, likely due to adhesions. 2. Mild hepatic steatosis. 3. 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 Dictated by: Cole Swift MD on 05/26/2019 5:17 PM. .
[2019-05-26 17:46] LABS: URINE APPEARANCE CLEAR; URINE BILIRUBIN NEGATIVE (NEGATIVE); URINE BLOOD NEGATIVE (NEGATIVE); URINE COLOR YELLOW; URINE GLUCOSE (UA) NEGATIVE (NEGATIVE); URINE KETONE NEGATIVE (NEGATIVE); URINE LEUKOCYTE ESTERASE NEGATIVE (NEGATIVE); URINE NITRITE NEGATIVE (NEGATIVE); URINE PROTEIN TRACE (NEGATIVE); URINE UROBILINOGEN 0.2 E.U./dL (0.20 - 1.00)
[2019-05-26 17:55] LABS: URINE EPITHELIAL CELLS NONE SEEN (FEW); URINE RBC NONE SEEN (NONE SEEN); URINE WBC NONE SEEN (0-2/hpf)
[2019-05-26] MEDS ORDERED: HYDROMORPHONE HCL 2 MG/ML VIAL IVP ONE (19:51)
[2019-05-26] MEDS ORDERED: 0.9 % SODIUM CHLORIDE 1000ML 1,000 ML IV ONE (21:39)
[2019-05-26] MEDS ORDERED: ONDANSETRON HCL IV 4 MG/2 ML VIAL IVP PRN (21:39)
[2019-05-26] MEDS ORDERED: HYDROMORPHONE HCL 2 MG/ML VIAL IV PRN (21:39)
[2019-05-27] MEDS: HYDROCODONE/APAP 5/325MG TABLET PO SCH ×2 (00:47→21:52)
[2019-05-27 06:37] LABS: ABSOLUTE NEUTROPHIL COUNT 6.34; BASO % 0.2 % (0-6); EOS % 1.7 % (0-6); GRAN % 61.5 % (47-80); HEMATOCRIT 42.2 % (42.0-52.0); HEMOGLOBIN 13.7 gm/dl (14.0-18.0); LYMPH % 24.3 % (16-45); MEAN CELL VOLUME 88.3 fl (81-97); MEAN CORPUSCULAR HGB CONC 32.5 g/dl (32-36); MEAN PLATELET VOLUME 8.7 fl (7.4-10.4); MONO % 12.3 % (0-9); PLATELET COUNT 285 K/uL (130-400); RED BLOOD COUNT 4.78 M/uL (4.40-5.70); RED CELL DISTRIBUTION WIDTH 14.5 % (11.5-14.5); WHITE BLOOD COUNT W/O DIFF 10.3 K/uL (4.2-12.2)
[2019-05-27 06:38] LABS: MEAN CORPUSCULAR HEMOGLOBIN 28.6 pg (27-33)
--- NOTE | 2019-05-27 06:43 | History & Physical ---
History of Present Illness - Date of Service Date of Service for History & Physical: 05/27/19 - History of Present Illness Admitting Diagnosis: sbo History of Present Illness: 73 y/o male presented to ED for 24 hour history of nausea, vomiting, RUQ and RLQ abdominal pain and concerns with bowel obstruction. 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 pt thinks he has a bowel obstruction from adhesions. last bm was 3 days ago. PAST MEDICAL/SURGICAL HISTORY Past Surgical History partial colon resection 2003 hip replacement 2016 colonoscopy PMH - Respiratory Hx Respiratory Disorders No PMH - Cardiovascular Hx Cardiovascular Disorders No PMH - Neuro Hx Neurological Disorders Yes Hx Headaches Yes PMH - GI Hx Gastrointestinal Disorders Yes Hx Abdominal Pain Yes Hx Obstructive Bowel Yes: SBO X3; LAST 2006 Comment: adhesions and scar tissue PMH - Hx Genitourinary Disorders No PMH - Endocrine Hx Endocrine Disorders Yes Hx Diabetes Yes: oral PMH - Musculoskeletal Hx Musculoskeletal Disorders Yes Hx Arthritis Yes Comment: CHRONIC BACK PAIN PMH - Psych Hx Psychiatric Problems No PMH - Hematology/Oncology Hx Hematology/Oncology Yes Disorders Hx Cancer Yes: colon Laboratory Results WBC 10.3 K/uL (4.2-12.2) 05/27/19 06:10 RBC 4.78 M/uL (4.40-5.70) 05/27/19 06:10 Hgb 13.7 gm/dl (14.0-18.0) L 05/27/19 06:10 Hct 42.2 % (42.0-52.0) 05/27/19 06:10 MCV 88.3 fl (81-97) 05/27/19 06:10 MCH 28.6 pg (27-33) 05/27/19 06:10 MCHC 32.5 g/dl (32-36) 05/27/19 06:10 RDW 14.5 % (11.5-14.5) 05/27/19 06:10 Plt Count 285 K/uL (130-400) 05/27/19 06:10 MPV 8.7 fl (7.4-10.4) 05/27/19 06:10 Gran % 61.5 % (47-80) 05/27/19 06:10 Neutrophils % 87.0 % (47-80) H 05/26/19 15:00 Lymphocytes % 24.3 % (16-45) 05/27/19 06:10 Monocytes % 12.3 % (0-9) H 05/27/19 06:10 Eosinophils % 1.7 % (0-6) 05/27/19 06:10 Basophils % 0.2 % (0-6) 05/27/19 06:10 Absolute Neutrophils 6.34 05/27/19 06:10 Lymphocytes 8.0 % (16-45) L 05/26/19 15:00 Monocytes 5.0 % (0-9) 05/26/19 15:00 Sodium 137 mmol/L (136-145) 05/27/19 06:10 Potassium 3.7 mmol/L (3.4-4.5) 05/27/19 06:10 Chloride 99 mmol/L (98-107) 05/27/19 06:10 Carbon Dioxide 26.0 mmol/L (22-29) 05/27/19 06:10 Anion Gap 12.0 (7-16) 05/27/19 06:10 BUN 33 mg/dL (8-23) H 05/27/19 06:10 Creatinine 0.8 mg/dL (0.7-1.2) 05/27/19 06:10 Estimated GFR > 60 mL/min 05/27/19 06:10 Random Glucose 135 mg/dL (74-109) H 05/27/19 06:10 Lactic Acid 2.7 mmol/L (0.5-2.2) H 05/26/19 18:10 Calcium 8.9 mg/dL (8.8-10.2) 05/27/19 06:10 Total Bilirubin 0.70 mg/dL (0.2-1.0) 05/26/19 15:00 Direct Bilirubin < 0.2 mg/dL (0-0.3) 05/26/19 15:00 AST 24 U/L (10.0-50.0) 05/26/19 15:00 ALT 34 U/L (<41) 05/26/19 15:00 Alkaline Phosphatase 95 U/L (40-129) 05/26/19 15:00 Total Protein 8.9 g/dL (6.6-8.7) H 05/26/19 15:00 Albumin 4.9 g/dL (4.0-5.0) 05/26/19 15:00 Lipase 12 U/L (13-60) L 05/26/19 15:00 Urine Color Yellow 05/26/19 17:44 Urine Appearance Clear 05/26/19 17:44 Urine pH 5.5 (5.0-8.0) 05/26/19 17:44 Ur Specific [place] 1.020 (1.002-1.030) 05/26/19 17:44 Urine Protein Trace (NEGATIVE) H 05/26/19 17:44 Urine Glucose (UA) Negative (NEGATIVE) 05/26/19 17:44 Urine Ketones Negative (NEGATIVE) 05/26/19 17:44 Urine Blood Negative (NEGATIVE) 05/26/19 17:44 Urine Nitrite Negative (NEGATIVE) 05/26/19 17:44 Urine Bilirubin Negative (NEGATIVE) 05/26/19 17:44 Urine Urobilinogen 0.2 E.U./dL (0.20 - 1.00) 05/26/19 17:44 Ur Leukocyte Esterase Negative (NEGATIVE) 05/26/19 17:44 Urine RBC None seen (NONE SEEN) 05/26/19 17:44 Urine WBC None seen (0-2/hpf) 05/26/19 17:44 Ur Epithelial Cells None seen (FEW) 05/26/19 17:44 Vital Signs - Last 24 Hrs Temp Pulse Pulse Resp BP BP Pulse Ox 05/27/19 07:00 98.6 F 72 16 104/67 94 L 05/27/19 06:33 16 05/27/19 03:39 98.1 F 75 16 131/75 94 L 05/26/19 23:39 97.9 F 73 16 130/75 97 05/26/19 21:25 98.8 F 78 18 140/83 95 05/26/19 21:10 98.0 F 74 14 127/81 94 L 05/26/19 19:48 80 20 138/83 100 05/26/19 14:49 97.4 F L 94 H 20 141/88 99 While in ED VSS, had CT abdomen/pelvis that showed high-grade ital SBO with transition point 2/2 adhesions, hepatic steatosis, and 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 An NG tube was placed for gut decompression and rest, made NPO and transferred to the floor. Dr Rizo was notified of admit as is well known t o his service for recurrent SBO 05/27/19- resting in bed comfortably, is requesting to eat. Reports has had no further vomiting, nausea, or abdominal pain. Has been passing gas and moved bowels twice today. Travel Screening - Travel/Exposure Within Last 30 Days Have you traveled within the last 30 days?: No - Travel/Exposure Within Last Year Have you traveled outside the [place] in the last year?: No - Additonal Travel Details Have you been exposed to anyone with a communicable illness?: No - Travel Symptoms Symptom Screening: Vomiting Review of Systems Constitutional: Reports: As per HPI. Denies: Chills, Fever, Malaise, Night sweats, Weakness, Weight change Eyes: Reports: As per HPI. Denies: Eye discharge, Eye pain, Photophobia, Vision change ENT: Reports: As per HPI. Denies: Congestion, Dental pain, Ear pain, Epistaxis, Hearing loss, Throat pain Respiratory: Reports: As per HPI. Denies: Cough, Dyspnea, Hemoptysis, Stridor, Wheezes Cardiovascular: Reports: As per HPI. Denies: Arrhythmia, Chest pain, Dyspnea on exertion, Edema, Murmurs, Orthopnea, Palpitations, Paroxysmal nocturnal dyspnea, Rheumatic Fever, Syncope Endocrine: Reports: As per HPI. Denies: Fatigue, Heat or cold intolerance, Polydipsia, Polyuria Gastrointestinal: Reports: As per HPI. Denies: Abdominal pain, Constipation, Diarrhea, Hematemesis, Hematochezia, Melena, Nausea, Vomiting Genitourinary: Reports: As per HPI. Denies: Dysuria, Frequency, Hematuria, Incontinence, Retention, Testicular pain, Testicular mass, Urgency Musculoskeletal: Reports: As per HPI. Denies: Arthralgia, Back pain, Gout, Joint swelling, Myalgia, Neck pain Skin: Reports: As per HPI. Denies: Bruising, Change in color, Change in hair/nails, Lesions, Pruritus, Rash Neurological: Reports: As per HPI. Denies: Abnormal gait, Confusion, Headache, Numbness, Paresthesias, Seizure, Tingling, Tremors, Vertigo, Weakness Psychiatric: Reports: As per HPI. Denies: Anxiety, Auditory hallucinations, Depression, Homicidal thoughts, Suicidal thoughts, Visual hallucinations Hematological/Lymphatic: Reports: As per HPI. Denies: Anemia, Blood Clots, Easy bleeding, Easy bruising, Swollen glands Past Medical History - SOCIAL HISTORY Smoking Status: Former smoker Alcohol Use: Occasional Drug Use: None - RESPIRATORY Hx Respiratory Disorders: No - CARDIOVASCULAR Hx Cardio Disorders: No - NEURO Hx Neuro Disorders: Yes Hx Headaches: Yes - GI Hx GI Disorders: Yes Hx Abdominal Pain: Yes Hx Obstructive Bowel: Yes (SBO X3; LAST 2006) Hx of Polyps: Yes Comment:: adhesions and scar tissue - Hx Genitourinary Disorders: No - ENDOCRINE Hx Endocrine Disorders: Yes Hx Diabetes: Yes (oral) - MUSCULOSKELETAL Hx Musculoskeletal Disorders: Yes Hx Arthritis: Yes Comment:: CHRONIC BACK PAIN - PSYCH Hx Psych Problems: No - HEMATOLOGY/ONCOLOGY Hx Hematology/Oncology Disorders: Yes Hx Cancer: Yes (colon) Family Medical History Any Significant Family History?: No H&P Meds/Allergies - Allergies Allergies: Allergies Allergy/AdvReac Type Severity Reaction Status Date / Time No Known Drug Allergies Allergy Verified 04/09/19 14:26 - Home Medications Previous Rx's Medication Instructions Recorded Cephalexin [Keflex] 500 mg PO TID #20 cap 04/09/19 - Active Medications Active Medications: Current Medications Hydrocodone Bitart/Acetaminophen ([place] 5mg/325mg) 1 each PO QHS CAROL Last Admin: 05/27/19 00:47 Dose: Not Given Documented by: Hydromorphone HCl (Dilaudid) 0.5 mg IV Q3HR PRN PRN Reason: ABDOMINAL PAIN Non-Formulary Medication (Sitagliptin Phos/Metformin Hcl [Janumet 50-1,000 Mg Tablet]) 1 each PO DAILY [facility] Ondansetron HCl (Zofran) 4 mg IVP Q4H PRN PRN Reason: NAUSEA Physical Exam - Vital Signs Vital Signs: Vital Signs - Last 24 Hrs Temp Pulse Pulse Resp BP BP Pulse Ox 05/27/19 06:33 16 05/27/19 03:39 98.1 F 75 16 131/75 94 L 05/26/19 23:39 97.9 F 73 16 130/75 97 05/26/19 21:25 98.8 F 78 18 140/83 95 05/26/19 21:10 98.0 F 74 14 127/81 94 L 05/26/19 19:48 80 20 138/83 100 05/26/19 14:49 97.4 F L 94 H 20 141/88 99 - General General Appearance: Alert, Oriented x3, Cooperative Limitations: No limitations - Head Head exam: Normal inspection - Eye Eye exam: Normal appearance, PERRL, EOMI Pupils: Normal accommodation - ENT ENT exam: Normal exam, Mucous membranes moist, Normal external ear exam, Normal orophraynx Ear exam: Normal external inspection. negative: External canal tenderness Nasal Exam: Normal inspection. negative: Discharge, Sinus tenderness Mouth exam: Normal external inspection, Tongue normal Teeth exam: Normal inspection. negative: Dental caries Throat exam: Normal inspection. negative: Tonsillar erythema, Tonsillar exudate - Neck Neck exam: Normal inspection, Full ROM. negative: Tenderness - Respiratory Respiratory exam: Normal lung sounds bilaterally. negative: Respiratory distress - Cardiovascular Cardiovascular Exam: Regular rate, Normal rhythm, Normal heart sounds - GI/Abdominal GI/Abdominal exam: Normal bowel sounds, Distended (mildy). negative: Tenderness - Rectal Rectal exam: Deferred - exam: Deferred - Extremities Extremities exam: Normal inspection, Full ROM, Normal capillary refill. ne gative: Tenderness - Back Back exam: Reports: Normal inspection, Full ROM. Denies: Muscle spasm, Rash noted, Tenderness - Neurological Neurological exam: Alert, Normal gait, Oriented X3, Reflexes normal - Psychiatric Psychiatric exam: Normal affect, Normal mood - Skin Skin exam: Dry, Intact, Normal color, Warm Results - Labs Result Diagrams: 05/27/19 06:10 05/27/19 06:10 Labs Last 24 Hours: Laboratory Results - last 24 hr 05/26/19 05/26/19 05/26/19 15:00 15:00 17:44 WBC 16.9 H RBC 6.01 H Hgb 17.1 Hct 52.1 H MCV 86.7 MCH 28.4 MCHC 32.8 RDW 14.9 H Plt Count 371 MPV 8.7 Gran % Neutrophils % 87.0 H Lymphocytes % Monocytes % Eosinophils % Not Reportable Basophils % Not Reportable Absolute Neutrophils Not Reportable Lymphocytes 8.0 L Monocytes 5.0 Sodium 140 Potassium 3.7 Chloride 94 L Carbon Dioxide 27.0 Anion Gap 19.0 H BUN 29 H Creatinine 1.0 Estimated GFR > 60 Random Glucose 190 H Lactic Acid Calcium 10.7 H Total Bilirubin 0.70 Direct Bilirubin < 0.2 AST 24 ALT 34 Alkaline Phosphatase 95 Total Protein 8.9 H Albumin 4.9 Lipase 12 L Urine Color Yellow Urine Appearance Clear Urine pH 5.5 Ur Specific [place] 1.020 Urine Protein Trace H Urine Glucose (UA) Negative Urine Ketones Negative Urine Blood Negative Urine Nitrite Negative Urine Bilirubin Negative Urine Urobilinogen 0.2 Ur Leukocyte Esterase Negative Urine RBC None seen Urine WBC None seen Ur Epithelial Cells None seen 05/26/19 05/27/19 18:10 06:10 WBC 10.3 RBC 4.78 Hgb 13.7 L Hct 42.2 MCV 88.3 MCH 28.6 MCHC 32.5 RDW 14.5 Plt Count 285 MPV 8.7 Gran % 61.5 Neutrophils % Lymphocytes % 24.3 Monocytes % 12.3 H Eosinophils % 1.7 Basophils % 0.2 Absolute Neutrophils 6.34 Lymphocytes Monocytes Sodium Potassium Chloride Carbon Dioxide Anion Gap BUN Creatinine Estimated GFR Random Glucose Lactic Acid 2.7 H Calcium Total Bilirubin Direct Bilirubin AST ALT Alkaline Phosphatase Total Protein Albumin Lipase Urine Color Urine Appearance Urine pH Ur Specific [place] Urine Protein Urine Glucose (UA) Urine Ketones Urine Blood Urine Nitrite Urine Bilirubin Urine Urobilinogen Ur Leukocyte Esterase Urine RBC Urine WBC Ur Epithelial Cells - Imaging and Cardiology CT scan - abdomen Status: Report reviewed VTE H&P Assessment - Risk for VTE Risk for VTE: Yes Risk Level: Moderate Risk Assessment Date: 05/27/19 Risk Assessment Time: 11:49 VTE Orders Placed or Will Be Placed: Yes Plan - Inpatient Certification Inpatient Certification: Admit to inpatient care: Based on my medical assessment, after consideration of patient's risk factors (age, co-morbidities and patient presenting symptoms and acuity), I expect that this patient will remain in the hospital greater than or equal to two midnights and that the services needed warrant inpatient care because: Patient Risk Factors: [advanced age, bowel obstruction] Estimated length of stay: [48-72 hrs] The patient may reasonably be expected to be discharged or transferred to a hospital within 96 hours after admission to [facility]. Services needed: [nursing, NG tube, IVF] Post hospital care (if known): [] I certify that my determination is in accordance with my understanding of Medicare requirements for reasonable and necessary inpatient services. 05/27/19 11:49 - Detailed Diagnosis and Plan (1) Small bowel obstruction due to adhesions Current Visit: Yes Status: Acute Base Code: K56.5 - INTESTINAL ADHESIONS WITH OBSTRUCTION (POSTIN * DO NOT USE * Comment: 05/27/19- 73 y/o male with previous hx SBO admitted for SBO. WBC in ED 16.9 and down to normal this am, afebrile. Nausea and pain resolved since admit. 2 BM today with passing of a large amount of gas. Feels much better this am. No n/v. - NG to suction, 800ml of dark biliary fluid in container, will clamp this after noon and offer clear liquids if no nausea or vomiting by dinner time - Spoke with Dr Rizo- is willing to consult if needed, well known to him - IV hydration - Antiemetics, pain control (2) DM type 2 (diabetes mellitus, type 2) Current Visit: Yes Status: Acute Qualifiers: Diabetes mellitus termination clerk insulin use: without termination clerk use Diabetes mellitus complication status: without complication Qualified Code(s): E11.9 - Type 2 diabetes mellitus without complications Base Code: E11.9 - TYPE 2 DIABETES MELLITUS WITHOUT COMPLICATIONS Comment: 05/27/19 - Accu checks AC/HS - Hold oral antihyperglycemics for now as NPO (3) DVT prophylaxis Current Visit: No Status: Acute Base Code: [id number] - Comment: 05/27/19- lovenox 40mg QD (4) Full code status Current Visit: No Status: Acute Base Code: Z78.9 - OTHER SPECIFIED HEALTH STATUS Comment: 05/27/19- will remain full code during this hospitalization
[2019-05-27 06:52] LABS: BLOOD UREA NITROGEN 33 mg/dL (8-23); CREATININE 0.8 mg/dL (0.7-1.2); EST GLOMERULAR FILTRATION RATE > 60 mL/min; GLUCOSE,RANDOM 135 mg/dL (74-109)
[2019-05-27] MEDS ORDERED: 0.9 % SODIUM CHLORIDE 1000ML 1,000 ML IV PRN (07:40)
[2019-05-27] MEDS ORDERED: ENOXAPARIN 40 MG/0.4 ML SYR SQ SCH (10:00)
[2019-05-27] MEDS ORDERED: SITAGLIPTIN PHOS PO SCH (10:00)
[2019-05-27] MEDS ORDERED: METFORMIN HCL PO SCH (10:00)
--- NOTE | 2019-05-28 09:41 | Discharge Summary ---
Providers Discharge Summary Date: 05/28/19 Date of admission: 05/26/19 21:18 Attending physician: LULA ARRIAZA Primary care physician: Sy Fernández D.O. Consults: Consult Orders 05/26/19 21:39 Consult NOW Consulting Provider: Brendan Rizo Physician Instructions: Reason For Exam: sbo Physical Exam - Vital Signs Vital Signs: Vital Signs - Last 24 Hrs Temp Pulse Resp BP Pulse Ox 05/28/19 07:35 97.9 F 64 16 111/56 96 05/28/19 00:40 98.1 F 71 16 112/70 98 05/27/19 21:00 81 16 05/27/19 20:00 98.6 F 81 16 113/69 99 05/27/19 16:50 97.7 F 77 16 122/74 95 05/27/19 12:20 97.5 F L 75 16 112/67 94 L - General General Appearance: Alert, Oriented x3, Cooperative Limitations: No limitations - Head Head exam: Normal inspection - Eye Eye exam: Normal appearance, PERRL, EOMI Pupils: Normal accommodation - ENT ENT exam: Normal exam, Mucous membranes moist, Normal external ear exam, Normal orophraynx Ear exam: Normal external inspection. negative: External canal tenderness Nasal Exam: Normal inspection. negative: Discharge, Sinus tenderness Mouth exam: Normal external inspection, Tongue normal Teeth exam: Normal inspection. negative: Dental caries Throat exam: Normal inspection. negative: Tonsillar erythema, Tonsillar exudate - Neck Neck exam: Normal inspection, Full ROM. negative: Tenderness - Respiratory Respiratory exam: Normal lung sounds bilaterally. negative: Respiratory distress - Cardiovascular Cardiovascular Exam: Regular rate, Normal rhythm, Normal heart sounds - GI/Abdominal GI/Abdominal exam: Soft, Normal bowel sounds. negative: Tenderness - Rectal Rectal exam: Deferred - exam: Deferred - Extremities Extremities exam: Normal inspection, Full ROM, Normal capillary refill. negative: Tenderness - Back Back exam: Reports: Normal inspection, Full ROM. Denies: Muscle spasm, Rash noted, Tenderness - Neurological Neurological exam: Alert, Normal gait, Oriented X3, Reflexes normal - Psychiatric Psychiatric exam: Normal affect, Normal mood - Skin Skin exam: Dry, Intact, Normal color, Warm Hospitalization - Hospitalization Admission Diagnosis: sbo - Problem List/Discharge Diagnosis (1) Small bowel obstruction due to adhesions Current Visit: Yes Status: Acute Base Code: K56.5 - INTESTINAL ADHESIONS WITH OBSTRUCTION (POSTIN * DO NOT USE * Comment: 05/28/19- 73 y/o male with previous hx SBO admitted for SBO. WBC in ED 16.9 and down to normal this am, afebrile. Nausea and pain resolved since admit. 2 BM today with passing of a large amount of gas. Feels much better this am. No n/v. - NG tube clamped yesterday and clearr and fulll liquid diet tolerated. NG tube pulled last night. No further abdominal pain, nausea, vomiting. Tolerated surgical soft diet this morning. - Spoke with Dr Rizo- is willing to consult if needed, well known to him - IV hydration - Antiemetics, pain control (2) DM type 2 (diabetes mellitus, type 2) Current Visit: Yes Status: Acute Discharge Diagnosis: Diabetes mellitus assistant terminal manager insulin use: without mcfp use Diabetes mellitus complication status: without complication Qualified Code(s): E11.9 - Type 2 diabetes mellitus without complications Base Code: E11.9 - TYPE 2 DIABETES MELLITUS WITHOUT COMPLICATIONS Comment: 05/28/19 - Accu checks AC/HS, blood sugars less than 200, will initiate routine home meds at time of discharge (3) DVT prophylaxis Current Visit: No Status: Acute Base Code: [id number] - Comment: 05/28/19- lovenox 40mg QD (4) Full code status Current Visit: No Status: Acute Base Code: Z78.9 - OTHER SPECIFIED HEALTH STATUS Comment: 05/28/19- will remain full code during this hospitalization - Hospitalization Course Disposition: Home, Self-Care Hospital Course: 73 y/o male presented to ED for 24 hour history of nausea, vomiting, RUQ and RLQ abdominal pain and concerns with bowel obstruction. 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 pt thinks he has a bowel obstruction from adhesions. last bm was 3 days ago. PAST MEDICAL/SURGICAL HISTORY Past Surgical History partial colon resection 2003 hip replacement 2016 colonoscopy PMH - Respiratory Hx Respiratory Disorders No PMH - Cardiovascular Hx Cardiovascular Disorders No PMH - Neuro Hx Neurological Disorders Yes Hx Headaches Yes PMH - GI Hx Gastrointestinal Disorders Yes Hx Abdominal Pain Yes Hx Obstructive Bowel Yes: SBO X3; LAST 2006 Comment: adhesions and scar tissue PMH - Hx Genitourinary Disorders No PMH - Endocrine Hx Endocrine Disorders Yes Hx Diabetes Yes: oral PMH - Musculoskeletal Hx Musculoskeletal Disorders Yes Hx Arthritis Yes Comment: CHRONIC BACK PAIN PMH - Psych Hx Psychiatric Problems No PMH - Hematology/Oncology Hx Hematology/Oncology Yes Disorders Hx Cancer Yes: colon Laboratory Results WBC 10.3 K/uL (4.2-12.2) 05/27/19 06:10 RBC 4.78 M/uL (4.40-5.70) 05/27/19 06:10 Hgb 13.7 gm/dl (14.0-18.0) L 05/27/19 06:10 Hct 42.2 % (42.0-52.0) 05/27/19 06:10 MCV 88.3 fl (81-97) 05/27/19 06:10 MCH 28.6 pg (27-33) 05/27/19 06:10 MCHC 32.5 g/dl (32-36) 05/27/19 06:10 RDW 14.5 % (11.5-14.5) 05/27/19 06:10 Plt Count 285 K/uL (130-400) 05/27/19 06:10 MPV 8.7 fl (7.4-10.4) 05/27/19 06:10 Gran % 61.5 % (47-80) 05/27/19 06:10 Neutrophils % 87.0 % (47-80) H 05/26/19 15:00 Lymphocytes % 24.3 % (16-45) 05/27/19 06:10 Monocytes % 12.3 % (0-9) H 05/27/19 06:10 Eosinophils % 1.7 % (0-6) 05/27/19 06:10 Basophils % 0.2 % (0-6) 05/27/19 06:10 Absolute Neutrophils 6.34 05/27/19 06:10 Lymphocytes 8.0 % (16-45) L 05/26/19 15:00 Monocytes 5.0 % (0-9) 05/26/19 15:00 Sodium 137 mmol/L (136-145) 05/27/19 06:10 Potassium 3.7 mmol/L (3.4-4.5) 05/27/19 06:10 Chloride 99 mmol/L (98-107) 05/27/19 06:10 Carbon Dioxide 26.0 mmol/L (22-29) 05/27/19 06:10 Anion Gap 12.0 (7-16) 05/27/19 06:10 BUN 33 mg/dL (8-23) H 05/27/19 06:10 Creatinine 0.8 mg/dL (0.7-1.2) 05/27/19 06:10 Estimated GFR > 60 mL/min 05/27/19 06:10 Random Glucose 135 mg/dL (74-109) H 05/27/19 06:10 Lactic Acid 2.7 mmol/L (0.5-2.2) H 05/26/19 18:10 Calcium 8.9 mg/dL (8.8-10.2) 05/27/19 06:10 Total Bilirubin 0.70 mg/dL (0.2-1.0) 05/26/19 15:00 Direct Bilirubin < 0.2 mg/dL (0-0.3) 05/26/19 15:00 AST 24 U/L (10.0-50.0) 05/26/19 15:00 ALT 34 U/L (<41) 05/26/19 15:00 Alkaline Phosphatase 95 U/L (40-129) 05/26/19 15:00 Total Protein 8.9 g/dL (6.6-8.7) H 05/26/19 15:00 Albumin 4.9 g/dL (4.0-5.0) 05/26/19 15:00 Lipase 12 U/L (13-60) L 05/26/19 15:00 Urine Color Yellow 05/26/19 17:44 Urine Appearance Clear 05/26/19 17:44 Urine pH 5.5 (5.0-8.0) 05/26/19 17:44 Ur Specific [place] 1.020 (1.002-1.030) 05/26/19 17:44 Urine Protein Trace (NEGATIVE) H 05/26/19 17:44 Urine Glucose (UA) Negative (NEGATIVE) 05/26/19 17:44 Urine Ketones Negative (NEGATIVE) 05/26/19 17:44 Urine Blood Negative (NEGATIVE) 05/26/19 17:44 Urine Nitrite Negative (NEGATIVE) 05/26/19 17:44 Urine Bilirubin Negative (NEGATIVE) 05/26/19 17:44 Urine Urobilinogen 0.2 E.U./dL (0.20 - 1.00) 05/26/19 17:44 Ur Leukocyte Esterase Negative (NEGATIVE) 05/26/19 17:44 Urine RBC None seen (NONE SEEN) 05/26/19 17:44 Urine WBC None seen (0-2/hpf) 05/26/19 17:44 Ur Epithelial Cells None seen (FEW) 05/26/19 17:44 Vital Signs - Last 24 Hrs Temp Pulse Pulse Resp BP BP Pulse Ox 05/27/19 07:00 98.6 F 72 16 104/67 94 L 05/27/19 06:33 16 05/27/19 03:39 98.1 F 75 16 131/75 94 L 05/26/19 23:39 97.9 F 73 16 130/75 97 05/26/19 21:25 98.8 F 78 18 140/83 95 05/26/19 21:10 98.0 F 74 14 127/81 94 L 05/26/19 19:48 80 20 138/83 100 05/26/19 14:49 97.4 F L 94 H 20 141/88 99 While in ED VSS, had CT abdomen/pelvis that showed high-grade ital SBO with tra nsition point 2/2 adhesions, hepatic steatosis, and 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 An NG tube was placed for gut decompression and rest, made NPO and transferred to the floor. Dr Rizo was notified of admit as is well known to his service for recurrent SBO 05/27/19- resting in bed comfortably, is requesting to eat. Reports has had no further vomiting, nausea, or abdominal pain. Has been passing gas and moved bowels twice today. 05/28/19 73 y/o male with previous hx SBO admitted for SBO. WBC in ED 16.9 and down to normal this am, afebrile. Nausea and pain resolved since admit. 2 BM today with passing of a large amount of gas. Feels much better this am. No n/v. NG tube clamped yesterday and clear and fulll liquid diet tolerated. NG tube pulled last night. No further abdominal pain, nausea, vomiting. Tolerated surgical soft diet this morning. Discharge home today Procedures: Imaging and X-Rays 05/26/19 15:07 ABDOMEN/PELVIS W CONTRAST [CT] Stat Abnormal Labs: Abnormal Lab Results 05/26/19 05/26/19 05/26/19 Range/Units 15:00 15:00 17:44 WBC 16.9 H (4.2-12.2) K/uL RBC 6.01 H (4.40-5.70) M/uL Hgb (14.0-18.0) gm/dl Hct 52.1 H (42.0-52.0) % RDW 14.9 H (11.5-14.5) % Neutrophils % 87.0 H (47-80) % Monocytes % (0-9) % Lymphocytes 8.0 L (16-45) % Chloride 94 L (98-107) mmol/L Anion Gap 19.0 H (7-16) BUN 29 H (8-23) mg/dL POC Glucose (70-110) mg/dL Random Glucose 190 H (74-109) mg/dL Lactic Acid (0.5-2.2) mmol/L Calcium 10.7 H (8.8-10.2) mg/dL Total Protein 8.9 H (6.6-8.7) g/dL Lipase 12 L (13-60) U/L Urine Protein Trace H (NEGATIVE) 05/26/19 05/27/19 05/27/19 Range/Units 18:10 06:10 06:10 WBC (4.2-12.2) K/uL RBC (4.40-5.70) M/uL Hgb 13.7 L (14.0-18.0) gm/dl Hct (42.0-52.0) % RDW (11.5-14.5) % Neutrophils % (47-80) % Monocytes % 12.3 H (0-9) % Lymphocytes (16-45) % Chloride (98-107) mmol/L Anion Gap (7-16) BUN 33 H (8-23) mg/dL POC Glucose (70-110) mg/dL Random Glucose 135 H (74-109) mg/dL Lactic Acid 2.7 H (0.5-2.2) mmol/L Calcium (8.8-10.2) mg/dL Total Protein (6.6-8.7) g/dL Lipase (13-60) U/L Urine Protein (NEGATIVE) 05/27/19 05/27/19 Range/Units 12:19 23:40 WBC (4.2-12.2) K/uL RBC (4.40-5.70) M/uL Hgb (14.0-18.0) gm/dl Hct (42.0-52.0) % RDW (11.5-14.5) % Neutrophils % (47-80) % Monocytes % (0-9) % Lymphocytes (16-45) % Chloride (98-107) mmol/L Anion Gap (7-16) BUN (8-23) mg/dL POC Glucose 115 H 123 H (70-110) mg/dL Random Glucose (74-109) mg/dL Lactic Acid (0.5-2.2) mmol/L Calcium (8.8-10.2) mg/dL Total Protein (6.6-8.7) g/dL Lipase (13-60) U/L Urine Protein (NEGATIVE) Condition at Discharge: (2) Stable Discharge Medications - Discharge Medications Home Medications: Ambulatory Orders Hydrocodone/Acetaminophen [[place] 5-325 Tablet] 1 each PO QHS 01/10/17 [Last Taken 1 Day Ago ~04/08/19] Cephalexin [Keflex] 500 mg PO TID #20 cap 04/09/19 [Last Taken Unknown] Sitagliptin Phos/Metformin HCl [Janum[place] 50-1,000 mg Tablet] 1 each PO DAILY 04/09/19 [Last Taken 1 Day Ago ~04/08/19] Discharge Plan - Discharge Instructions Activity at Discharge: Increase Activity as Tolerated Diet at Discharge: Advance to Usual Diet (slowly increase foods as tolerated. ) Quality Measures - Quality Measures Quality Measures: Advance Directives, Documentation of Current Medications in Medical Record, Elder Maltreatment Screen and Follow-Up Plan, Screening for High Blood Pressure and F/U Documented - Current Medications Quality Measure: Measure #130: Documentation of Current Medications Documentation of Current Medications: <Current Medications Documented/Reviewed> [[id number]] - Blood Pressure Screening Quality Measure: Screening for High Blood Pressure and Follow-Up Documented Does Patient Have Any of the Following: No Blood Pressure Classification: Pre-Hypertensive BP Reading Systolic Measurement: 141 Diastolic Measurement: 88 Screening for High Blood Pressure: < Pre-Hypertensive BP, F/U Documented > [G8 950] Pre-Hypertensive Follow-up Interventions: Follow-up with rescreen every year. - Advance Directives Quality Measure: Measure #47: Care Plan Advance Directives Established: No Advance Directives Information Provided To Patient: Already Provided Advance Directives on File: No Living Will: No Power of Hot Dog Vendor: No Advance Care Planning: <Care Plan/Decision Maker Documented; Discussed & Documented> [1123F] - Elder Abuse Suspicion Index Screening: Elder Abuse Suspicion Index Screening Rely on people for bathing, dressing, shopping, banking, etc: No Prevented from getting food, clothes, medication, etc: No Made to feel shamed or threatened by someone: No Forced to sign papers or use money against will: No Feel afraid, touched in ways not wanted or hurt physically: No Poor eye contact, withdrawn, malnourished, cuts or bruises: No Screening Result: Negative result EASI Reference Information: Elizabeth ETIENNE, Charleen C, Miko D, Zonia Coleman.Development and validation of a tool to assist physicians identification of elder abuse: The Elder Abuse Suspicion Index (EASI ). Journal of Elder Abuse and Neglect, 2008; 20 (3): 276-300. - Elder Maltreatment Screen Quality Measures: Elder Maltreatment Screen and Follow-Up Plan Elder Maltreatment Screen: <Negative, No Follow-Up Plan Required> [G1545]
== END 2019-05-28 10:15 | disposition home or self-care (01) | DRG 390 ==
LOC: ER 14:43 → MEDSURG 21:18
PROVIDERS: ADMIT Internal Medicine; ATTEND Internal Medicine
DX: K56.50 Intestinal adhesions [bands], unspecified as to partial versus complete obstruction (principal); R10.31 Right lower quadrant pain; R11.2 Nausea with vomiting, unspecified; E11.9 Type 2 diabetes mellitus without complications; Z79.84 Long term (current) use of oral hypoglycemic drugs; M19.90 Unspecified osteoarthritis, unspecified site; Z87.891 Personal history of nicotine dependence; Z85.038 Personal history of other malignant neoplasm of large intestine; Z87.19 Personal history of other diseases of the digestive system
CPT/HCPCS: 36416; 74177; 80048; 80076; 81001; 82948; 83605; 83690; 85025; 85027; 96374; 96375; 99223; 99239; 99285; J1650; J1885; J2405; J7030